=== PATIENT | female | born 1975 | race Caucasian/White ===

== ENCOUNTER 2019-02-14 13:31 | Emergency (ER) | payer MEDICAID ==
--- NOTE | 2019-02-14 13:49 | ER Document Report ---
ED Medical Screen (RME) - General Chief Complaint: Vomiting Stated Complaint: VOMITING Time Seen by Provider: 02/14/19 13:41 Mode of Arrival: Ambulatory Information source: Patient Notes: This 43-year-old female with history of IBS asthma presents to the emergency department with epigastric abdominal pain and vomiting. Reports she has been vomiting with abdominal pain since Monday. Reports her stomach feels like it is on fire. She has not taken anything for the pain. She reports she has been vomiting up coffee-ground material. Denies history of ulcers. She did go to urgent care prior to arrival they treated her with an injection for her nausea. She also reports they did a urinalysis while they were at the urgent care and she is been told she is . Patient reports diarrhea since last week but has been having diarrhea on and off since October. Was diagnosed with IBS in October or November via colonoscopy. Denies fever reports she feels very cold. I have greeted and performed a rapid initial assessment of this patient. A comprehensive ED assessment and evaluation of the patient, analysis of test results and completion of the medical decision making process will be conducted by additional ED providers. Dictation of this chart was performed using voice recognition software; therefore, there may be some unintended grammatical errors. - Related Data Allergies/Adverse Reactions: No Known Allergies Allergy (Verified 02/14/19 13:47) Physical Exam - Vital signs Vitals: Temp Pulse Resp BP Pulse Ox 98.2 F 65 18 113/87 H 100 02/14/19 13:34 02/14/19 13:34 02/14/19 13:34 02/14/19 13:34 02/14/19 13:34 Course - Vital Signs Vital signs: Temp Pulse Resp BP Pulse Ox 98.2 F 65 18 113/87 H 100 02/14/19 13:34 02/14/19 13:34 02/14/19 13:34 02/14/19 13:34 02/14/19 13:34
[2019-02-14 14:58] LABS: ABSOLUTE EOSINOPHILS # (AUTO) 0.2 10^3/uL (0.0-0.6); ABSOLUTE LYMPHOCYTES (AUTO) 1.7 10^3/uL (0.5-4.7); ABSOLUTE MONOCYTES (AUTO) 0.7 10^3/uL (0.1-1.4); ABSOLUTE NEUT (AUTO) 3.1 10^3/uL (1.7-8.2); BASOPHILS % (AUTO) 0.5 % (0-2); EOSINOPHILS % (AUTO) 3.9 % (0-6); HEMATOCRIT 44.2 % (36.0-47.0); HEMOGLOBIN 15.1 g/dL (12.0-15.5); LYMPHOCYTES % (AUTO) 29.8 % (13-45); MEAN CORPUSCULAR HEMOGLOBIN 32.3 pg (27.0-33.4); MEAN CORPUSCULAR HGB CONC 34.2 g/dL (32.0-36.0); MEAN CORPUSCULAR VOLUME 94 fl (80-97); PLATELET COUNT 135 10^3/uL (150-450); RED BLOOD COUNT 4.69 10^6/uL (3.72-5.28); RED CELL DISTRIBUTION WIDTH 12.6 % (11.5-14.0); SEGMENTED NEUTROPHILS % (AUTO) 53.8 % (42-78); TOTAL CELLS COUNTED % (AUTO) 100 %; WHITE BLOOD COUNT 5.7 10^3/uL (4.0-10.5)
[2019-02-14 15:16] LABS: APPEARANCE,URINE CLOUDY; BILIRUBIN,URINE SMALL (NEGATIVE); GLUCOSE, URINE NEGATIVE (NEGATIVE); KETONES,URINE TRACE mg/dL (NEGATIVE); LEUKOCYTE ESTERASE,URINE NEGATIVE (NEGATIVE); NITRITE,URINE NEGATIVE (NEGATIVE); PROTEIN,URINE 30 mg/dL (NEGATIVE); URINE SPECIFIC GRAVITY 1.028
[2019-02-14 15:17] LABS: ALBUMIN 4.8 g/dL (3.5-5.0); ALKALINE PHOSPHATASE 107 U/L (38-126); ANION GAP 12 (5-19); ASPARTATE AMINO TRANSFERASE 21 U/L (14-36); BILIRUBIN,DIRECT 0.1 mg/dL (0.0-0.4); BILIRUBIN,TOTAL 0.6 mg/dL (0.2-1.3); BLOOD UREA NITROGEN 14 mg/dL (7-20); CALCIUM 9.8 mg/dL (8.4-10.2); CARBON DIOXIDE 27 mmol/L (22-30); CHLORIDE 101 mmol/L (98-107); COLOR,URINE DARK YELLOW; GLUCOSE 97 mg/dL (75-110); POTASSIUM 4.3 mmol/L (3.6-5.0); TOTAL PROTEIN 8.2 g/dL (6.3-8.2)
--- NOTE | 2019-02-14 15:48 | ER Document Report ---
ED GI/ - General Chief Complaint: Abdominal Pain Stated Complaint: VOMITING Time Seen by Provider: 02/14/19 13:41 Primary Care Provider: DOMINIQUE WHITMORE PA-C [Primary Care Provider] - Follow up as needed Mode of Arrival: Ambulatory Information source: Patient Notes: Patient is a 43-year-old female presenting to the emergency department with complaints of upper abdominal pain with vomiting and diarrhea. Patient reports the diarrhea has been going on for several months and she has a history of IBS. Patient reports the epigastric pain with vomiting began on Monday which was 6 days ago. She reports that she did have some coffee-ground looking emesis yesterday. She reports this morning she went to an urgent care to be seen with a found out that she was also . Patient reports she is currently on control pills. If she is indeed she is now G3, P2. She denies any history of GI bleeds, denies any fevers. She does report a history of back surgery, cholecystectomy and appendectomy. TRAVEL OUTSIDE OF THE [place] IN LAST 30 DAYS: No - Related Data Allergies/Adverse Reactions: No Known Allergies Allergy (Verified 02/14/19 13:47) Past Medical History - General Information source: Patient - Social History Smoking Status: Current Every Day Smoker Chew tobacco use (# tins/day): No Frequency of alcohol use: None Drug Abuse: Marijuana Family History: Reviewed & Not Pertinent Patient has suicidal ideation: No Patient has homicidal ideation: No Pulmonary Medical History: Reports: Hx Asthma GI Medical History: Reports: Hx Irritable Bowel Past Surgical History: Reports: Hx Appendectomy, Hx Cholecystectomy, Hx Orthopedic Surgery - lower back - Immunizations Immunizations up to date: Yes Review of Systems - Review of Systems Constitutional: No symptoms reported. denies: Fever EENT: No symptoms reported Cardiovascular: No symptoms reported Respiratory: No symptoms reported Gastrointestinal: Abdominal pain - Epigastric, Nausea, Vomiting, Constipation Genitourinary: No symptoms reported Female Genitourinary: No symptoms reported Musculoskeletal: No symptoms reported Skin: No symptoms reported Hematologic/Lymphatic: No symptoms reported Neurological/Psychological: No symptoms reported Physical Exam - Vital signs Vitals: Temp Pulse Resp BP Pulse Ox 98.2 F 65 18 113/87 H 100 02/14/19 13:34 02/14/19 13:34 02/14/19 13:34 02/14/19 13:34 02/14/19 13:34 - Notes Notes: PHYSICAL EXAMINATION: GENERAL: Well-appearing, well-nourished and in no acute distress. HEAD: Atraumatic, normocephalic. EYES: Pupils equal round and reactive to light, extraocular movements intact, conjunctiva are normal. ENT: Nares patent, oropharynx clear without exudates. Moist mucous membranes. NECK: Normal range of motion, supple without lymphadenopathy LUNGS: Breath sounds clear to auscultation bilaterally and equal. No wheezes rales or rhonchi. HEART: Regular rate and rhythm without murmurs ABDOMEN: Soft, nontender, nondistended abdomen. Tenderness over the epigastric area. No guarding, no rebound. No masses appreciated. Female : No CVA tenderness. Musculoskeletal: Normal range of motion, no pitting or edema. No cyanosis. NEUROLOGICAL: Cranial nerves grossly intact. Normal speech, normal gait. Normal sensory, motor exams PSYCH: Normal mood, normal affect. SKIN: Warm, Dry, normal turgor, no rashes or lesions noted. Course - Re-evaluation Re-evalutation: Patient appears well, nontoxic. Physical exam reveals tenderness over the epigastric area. Labs and imaging as recorded below. Laboratory 02/14/19 02/14/19 02/14/19 14:30 14:30 14:30 WBC 5.7 RBC 4.69 Hgb 15.1 Hct 44.2 MCV 94 MCH 32.3 MCHC 34.2 RDW 12.6 Plt Count 135 L Lymph % (Auto) 29.8 Gilchrist % (Auto) 12.0 Eos % (Auto) 3.9 Baso % (Auto) 0.5 Absolute Neuts (auto) 3.1 Absolute Lymphs (auto) 1.7 Absolute Monos (auto) 0.7 Absolute Eos (auto) 0.2 Absolute Basos (auto) 0.0 Seg Neutrophils % 53.8 Sodium 140.1 Potassium 4.3 Chloride 101 Carbon Dioxide 27 Anion Gap 12 BUN 14 Creatinine 0.83 Est GFR ( Amer) > 60 Est GFR (MDRD) Non-Af > 60 Glucose 97 Calcium 9.8 Total Bilirubin 0.6 Direct Bilirubin 0.1 Neonat Total Bilirubin Not Reportable Neonat Direct Bilirubin Not Reportable Neonat Indirect Bili Not Reportable AST 21 ALT 13 Alkaline Phosphatase 107 Total Protein 8.2 Albumin 4.8 Beta HCG, Quant 8.05 H Total Beta HCG POSITIVE Urine Color DARK YELLOW Urine Appearance CLOUDY Urine pH 5.0 Ur Specific [place] 1.028 Urine Protein 30 H Urine Glucose (UA) NEGATIVE Urine Ketones TRACE H Urine Blood NEGATIVE Urine Nitrite NEGATIVE Urine Bilirubin SMALL H Urine Urobilinogen 2.0 H Ur Leukocyte Esterase NEGATIVE Urine WBC (Auto) 9 Urine RBC (Auto) 9 Urine Bacteria (Auto) TRACE Squamous Epi Cells Auto 19 Urine Mucus (Auto) MANY Urine Ascorbic Acid NEGATIVE Blood Type Antibody Screen 02/14/19 02/14/19 15:35 16:30 WBC RBC Hgb Hct MCV MCH MCHC RDW Plt Count Lymph % (Auto) Gilchrist % (Auto) Eos % (Auto) Baso % (Auto) Absolute Neuts (auto) Absolute Lymphs (auto) Absolute Monos (auto) Absolute Eos (auto) Absolute Basos (auto) Seg Neutrophils % Sodium Potassium Chloride Carbon Dioxide Anion Gap BUN Creatinine Est GFR ( Amer) Est GFR (MDRD) Non-Af Glucose Calcium Total Bilirubin Direct Bilirubin Neonat Total Bilirubin Neonat Direct Bilirubin Neonat Indirect Bili AST ALT Alkaline Phosphatase Total Protein Albumin Beta HCG, Quant Total Beta HCG Urine Color Urine Appearance Urine pH Ur Specific [place] Urine Protein Urine Glucose (UA) Urine Ketones Urine Blood Urine Nitrite Urine Bilirubin Urine Urobilinogen Ur Leukocyte Esterase Urine WBC (Auto) Urine RBC (Auto) Urine Bacteria (Auto) Squamous Epi Cells Auto Urine Mucus (Auto) Urine Ascorbic Acid Blood Type Cancelled O POSITIVE Antibody Screen Cancelled NEGATIVE Obstetrics Ultrasound 02/14/19 17:51 IMPRESSION: NO VISUALIZED INTRA- OR EXTRAUTERINE . bHCG LEVEL TOO LOW TO EXPECT VISUALIZATION OF . ECTOPIC CANNOT BE EXCLUDED. FOLLOW-UP ULTRASOUND AND SERIAL BHCG LEVELS STRONGLY RECOMMENDED TO ACCURATELY ASSESS STATUS. All test results were discussed with patient. Patient continues to appear well. Likely gastritis. Patient will be discharged home in stable condition. Patient will follow-up with RE[facility]ERATOR [facility] for further evaluation of the newly found positive . Patient verbalizes understanding and agreement with this plan. The patient's emergency department workup and current diagnosis were explained to the patient and or family. Follow-up instructions were provided. Medications if prescribed were discussed. Instructions for when to return to the emergency department including specific worrisome symptoms were discussed with the patient and/or family. - Vital Signs Vital signs: Temp Pulse Resp BP Pulse Ox 98.2 F 47 L 16 109/68 97 02/14/19 19:44 02/14/19 19:44 02/14/19 19:44 02/14/19 19:44 02/14/19 19:44 - Laboratory Result Diagrams: 02/14/19 14:30 02/14/19 14:30 Laboratory results interpreted by me: 02/14/19 02/14/19 02/14/19 14:30 14:30 14:30 Plt Count 135 L Beta HCG, Quant 8.05 H Urine Protein 30 H Urine Ketones TRACE H Urine Bilirubin SMALL H Urine Urobilinogen 2.0 H Discharge - Discharge Clinical Impression: Gastritis Qualifiers: Gastritis type: unspecified gastritis Chronicity: acute Gastritis bleeding: presence of bleeding unspecified Qualified Code(s): K29.00 - Acute gastritis without bleeding Qualifiers: Weeks of gestation: unspecified Qualified Code(s): Z34.90 - Encounter for supe rvision of normal , unspecified, unspecified trimester Condition: Stable Disposition: HOME, SELF-CARE Additional Instructions: Your symptoms appear to be most consistent with stomach or upper intestinal irritation. Please begin taking famotidine 40 mg in the morning and 40 mg at night. Take the Carafate as prescribed. You may also take medicine such as Pepto-Bismol or Tums to assist with your pain. Please return to emergency department immediately if you have worsening of your pain, shortness of breath, vomiting, become unable to exert yourself due to pain or difficulty breathing, you pass out, or have any pain that radiates into your arms, jaw, or back. Please also return if you have any additional symptoms that are concerning to you. Please follow-up with either your DIGITAL ASSISTANT or your primary care provider for further management of the newly diagnosed . Prescriptions: Sucralfate [Carafate 1 gm Tablet] 1 gm PO ACHS #60 tablet Famotidine [Pepcid 20 mg Tablet] 40 mg PO BID #40 tablet Metoclopramide HCl [Reglan] 10 mg PO QID #20 tablet Referrals: DOMINIQUE WHITMORE PA-C [Primary Care Provider] - Follow up as needed
[2019-02-14] MEDS ORDERED: FAMOTIDINE INJ/PF 20 MG/2 ML SDV IV ONE (15:49)
[2019-02-14] MEDS ORDERED: METOCLOPRAMIDE HCL INJ/PF 10 MG/2 ML SDV IV ONE (15:49)
--- NOTE | 2019-02-14 18:31 | RADIOLOGY REPORT (SQ) ---
EXAM DESCRIPTION: U/S OB TRANSVAGINAL W/O DOP COMPLETED DATE/TIME: 02/14/2019 6:22 pm REASON FOR STUDY: + preg, low quant COMPARISON: None. TECHNIQUE: Transvaginal static and realtime grayscale images acquired of the pelvis. Additional ever cted spectral and color Doppler images recorded. All images stored on PACs. CLINICAL AGE: 3 week 6 day. BHC.05 LIMITATIONS: None. FINDINGS: UTERUS: No visualized intrauterine . RIGHT ADNEXA: Obscured by overlying bowel No adnexal free fluid. No adnexal masses. LEFT ADNEXA: Obscured by overlying bowel. No adnexal free fluid. No adnexal masses. FREE FLUID: None. OTHER: No other significant finding. IMPRESSION: NO VISUALIZED INTRA- OR EXTRAUTERINE . bHCG LEVEL TOO LOW TO EXPECT VISUALIZATION OF . ECTOPIC CANNOT BE EXCLUDED. FOLLOW-UP ULTRASOUND AND SERIAL BHCG LEVELS STRONGLY RECOMMENDED TO ACCURATELY ASSESS STATU S. TECHNICAL DOCUMENTATION: JOB ID: [id number] [employer]- All Rights Reserved Reading location - IP/workstation name: [email or web address]
[2019-02-14 19:48] VITALS: BP 109/68
== END 2019-02-14 19:50 | disposition home or self-care (01) ==
LOC: ER 13:31
DX: O99.619 Diseases of the digestive system complicating pregnancy, unspecified trimester (principal); K29.00 Acute gastritis without bleeding; K59.00 Constipation, unspecified; O26.899 Other specified pregnancy related conditions, unspecified trimester; R19.7 Diarrhea, unspecified; R10.13 Epigastric pain; R10.816 Epigastric abdominal tenderness; O21.9 Vomiting of pregnancy, unspecified; O99.320 Drug use complicating pregnancy, unspecified trimester; F12.10 Cannabis abuse, uncomplicated; O99.330 Smoking (tobacco) complicating pregnancy, unspecified trimester; F17.200 Nicotine dependence, unspecified, uncomplicated; O99.519 Diseases of the respiratory system complicating pregnancy, unspecified trimester; J45.909 Unspecified asthma, uncomplicated; Z3A.00 Weeks of gestation of pregnancy not specified; Z79.3 Long term (current) use of hormonal contraceptives; Z90.49 Acquired absence of other specified parts of digestive tract
CPT/HCPCS: 99284; 96374; 96375; 86900; 86901; 36415; 86850; 84702; 85025; 80053; 81001; 76817; J2765; S0028

== ENCOUNTER 2019-09-05 19:14 | Emergency (ER) | payer SELFPAY ==
--- NOTE | 2019-09-05 19:24 | ER Document Report ---
ED Medical Screen (RME) - General Stated Complaint: HEADACHE,DIZZINESS,NAUSEA Primary Care Provider: DOMINIQUE WHITMORE PA-C [Primary Care Provider] - Follow up as needed Notes: Patient is a 43-year-old white female with a past medical history of asthma who presents to the emergency department the chief complaint of headache that began 3 days ago. She states it is primarily a frontal headache. States the headache is associated with nausea and vomiting. She reports the headache, nausea and vomiting worsen when she sits upright, slightly better when lying down however notes tenderness to the occipital scalp area if lying on it. Denies any visual disturbances. She states her daughter recently had a very similar headache prior to hers and then she got 1. She denies history of any headache disorder. Denies any recent procedures. I have treated and performed a rapid initial assessment of this patient. A comprehensive ED assessment and evaluation of the patient, analysis of test results and completion of medical decision making process will be conducted by additional ED providers. PHYSICAL EXAMINATION: GENERAL: Well-appearing, well-nourished and in no acute distress. A&Ox4. Answers questions appropriately. TRAVEL OUTSIDE OF THE [place] IN LAST 30 DAYS: No - Related Data Allergies/Adverse Reactions: No Known Allergies Allergy (Verified 02/14/19 13:47) Past Medical History Pulmonary Medical History: Reports: Hx Asthma GI Medical History: Reports: Hx Irritable Bowel Past Surgical History: Reports: Hx Appendectomy, Hx Cholecystectomy, Hx Orthopedic Surgery - lower back - Immunizations Immunizations up to date: Yes Physical Exam - Vital signs Vitals: Temp Pulse Resp BP Pulse Ox 98.3 F 95 16 94/51 L 93 09/05/19 19:19 09/05/19 19:19 09/05/19 19:19 09/05/19 19:19 09/05/19 19:19 Course - Vital Signs Vital signs: Temp Pulse Resp BP Pulse Ox 98.3 F 95 16 94/51 L 93 09/05/19 19:19 09/05/19 19:19 09/05/19 19:19 09/05/19 19:19 09/05/19 19:19 Doctor's Discharge - Discharge Referrals: DOMINIQUE WHITMORE PA-C [Primary Care Provider] - Follow up as needed
[2019-09-05 19:50] LABS: ABSOLUTE EOSINOPHILS # (AUTO) 0.1 10^3/uL (0.0-0.6); ABSOLUTE LYMPHOCYTES (AUTO) 1.3 10^3/uL (0.5-4.7); ABSOLUTE MONOCYTES (AUTO) 0.3 10^3/uL (0.1-1.4); ABSOLUTE NEUT (AUTO) 1.3 10^3/uL (1.7-8.2); BASOPHILS % (AUTO) 1.4 % (0-2); EOSINOPHILS % (AUTO) 3.3 % (0-6); HEMATOCRIT 40.3 % (36.0-47.0); HEMOGLOBIN 14.1 g/dL (12.0-15.5); LYMPHOCYTES % (AUTO) 41.2 % (13-45); MEAN CORPUSCULAR HEMOGLOBIN 32.1 pg (27.0-33.4); MEAN CORPUSCULAR VOLUME 92 fl (80-97); PLATELET COUNT 124 10^3/uL (150-450); RED BLOOD COUNT 4.39 10^6/uL (3.72-5.28); RED CELL DISTRIBUTION WIDTH 13.6 % (11.5-14.0); SEGMENTED NEUTROPHILS % (AUTO) 44.1 % (42-78); TOTAL CELLS COUNTED % (AUTO) 100 %
[2019-09-05 20:06] LABS: ALKALINE PHOSPHATASE 87 U/L (38-126); ANION GAP 5 (5-19); ASPARTATE AMINO TRANSFERASE 24 U/L (14-36); BILIRUBIN,TOTAL 0.6 mg/dL (0.2-1.3); BLOOD UREA NITROGEN 12 mg/dL (7-20); CALCIUM 8.8 mg/dL (8.4-10.2); CARBON DIOXIDE 26 mmol/L (22-30); CHLORIDE 103 mmol/L (98-107); GLUCOSE 97 mg/dL (75-110); POTASSIUM 4.1 mmol/L (3.6-5.0); TOTAL PROTEIN 7.5 g/dL (6.3-8.2)
--- NOTE | 2019-09-05 20:55 | ER Document Report ---
ED General - General Chief Complaint: Headache Stated Complaint: HEADACHE,DIZZINESS,NAUSEA Time Seen by Provider: 09/05/19 20:53 Primary Care Provider: DOMINIQUE WHITMORE PA-C [ALLIED HEALTH PROFESSIONAL] - Follow up as needed Mode of Arrival: Ambulatory Information source: Patient Notes: Tara note Patient is a 43-year-old white female with a past medical history of asthma who presents to the emergency department the chief complaint of headache that began 3 days ago. She states it is primarily a frontal headache. States the headache is associated with nausea and vomiting. She reports the headache, nausea and vomiting worsen when she sits upright, slightly better when lying down however notes tenderness to the occipital scalp area if lying on it. Denies any visual disturbances. She states her daughter recently had a very similar headache prior to hers and then she got 1. She denies history of any headache disorder. Denies any recent procedures. My note 43-year-old female arrives with diffuse cephalgia and dyspnea and nausea when she attempts to sit up. She denies any nuchal rigidity or neck pain sore throat fever chills cough cold but does admit to some problems with pollen. She works at [employer] and denies any flu symptoms or coronavirus symptoms. She has had her headache since Monday TRAVEL OUTSIDE OF THE [place] IN LAST 30 DAYS: No - HPI Onset: Just prior to arrival Onset/Duration: Sudden, Persistent Quality of pain: No pain Severity: Mild Pain Level: 1 Associated symptoms: None Exacerbated by: Denies Relieved by: Denies Similar symptoms previously: Yes Recently seen / treated by doctor: No - Related Data Allergies/Adverse Reactions: No Known Allergies Allergy (Verified 02/14/19 13:47) Home Medications: tylenol prn Past Medical History - General Information source: Patient - Social History Smoking Status: Current Every Day Smoker Cigarette use (# per day): Yes Chew tobacco use (# tins/day): No Smoking Education Provided: Yes Frequency of alcohol use: None Drug Abuse: None Lives with: Family Family History: Reviewed & Not Pertinent Patient has suicidal ideation: No Patient has homicidal ideation: No Pulmonary Medical History: Reports: Hx Asthma GI Medical History: Reports: Hx Irritable Bowel Past Surgical History: Reports: Hx Appendectomy, Hx Cholecystectomy, Hx Orthopedic Surgery - lower back - Immunizations Immunizations up to date: Yes Review of Systems - Review of Systems Constitutional: No symptoms reported EENT: No symptoms reported, Nose congestion Cardiovascular: No symptoms reported Respiratory: No symptoms reported Gastrointestinal: No symptoms reported Genitourinary: No symptoms reported Female Genitourinary: No symptoms reported Musculoskeletal: No symptoms reported Skin: No symptoms reported Hematologic/Lymphatic: No symptoms reported Neurological/Psychological: No symptoms reported, Headaches Physical Exam - Vital signs Vitals: Temp Pulse Resp BP Pulse Ox 98.3 F 95 16 94/51 L 93 09/05/19 19:19 09/05/19 19:19 09/05/19 19:19 09/05/19 19:19 09/05/19 19:19 Interpretation: Hypotensive - General General appearance: Alert - HEENT Head: Normocephalic Eyes: Normal Conjunctiva: Normal Cornea: Normal Extraocular movements intact: Yes Eyelashes: Normal Pupils: PERRL Nasal: Clear rhinorrhea Mouth/Lips: Normal Mucous membranes: Normal Pharynx: Normal Neck: Normal - Respiratory Respiratory status: No respiratory distress Chest status: Nontender Breath sounds: Normal Chest palpation: Normal - Cardiovascular Rhythm: Regular Heart sounds: Normal auscultation Murmur: No - Abdominal Inspection: Normal Distension: No distension Bowel sounds: Normal Tenderness: Nontender Organomegaly: No organomegaly - Back Back: Normal - Extremities General upper extremity: Normal inspection General lower extremity: Normal inspection - Neurological Neuro grossly intact: Yes Cognition: Normal Orientation: AAOx4 Frannie Coma Scale Eye Opening: Spontaneous Frannie Coma Scale Verbal: Oriented [place] Coma Scale Motor: Obeys Commands Frannie Coma Scale Total: 15 Speech: Normal Cranial nerves: Normal Cerebellar coordination: Normal Motor strength normal: LUE, RUE, LLE, RLE - Psychological Associated symptoms: Normal affect - Skin Skin Temperature: Warm Skin Moisture: Dry Course - Vital Signs Vital signs: Temp Pulse Resp BP Pulse Ox 98.3 F 95 16 94/51 L 93 09/05/19 19:19 09/05/19 19:19 09/05/19 19:19 09/05/19 19:19 09/05/19 19:19 - Laboratory Result Diagrams: 09/05/19 19:36 09/05/19 19:36 Laboratory results interpreted by me: 09/05/19 09/05/19 19:36 19:36 WBC 3.0 L Plt Count 124 L Absolute Neuts (auto) 1.3 L Sodium 133.7 L - Diagnostic Test Radiology reviewed: Reports reviewed Critical Care Note - Critical Care Note Total time excluding time spent on procedures (mins): 90 Comments: I discussed the CT reports and the labs with the patient and also the lowered white count Discharge - Discharge Clinical Impression: Headache Qualifiers: Headache type: unspecified Headache chronicity pattern: acute headache Intr actability: not intractable Qualified Code(s): R51 - Headache Leucopenia Qualifiers: Leukopenia type: unspecified Qualified Code(s): D72.819 - Decreased white blood cell count, unspecified Hypotension Qualifiers: Hypotension type: other hypotension type Qualified Code(s): I95.89 - Other hypotension Condition: Good Disposition: HOME, SELF-CARE Additional Instructions: Follow-up with personal doctor return to ER if symptoms persist take medicines as directed encourage fluids Prescriptions: Mupirocin [Bactroban 2% Ointment 22 gm] 1 applic NASL HSP PRN #1 tube PRN Reason: Levofloxacin [Levaquin 500 mg Tablet] 500 mg PO DAILY #5 tablet Acyclovir [Zovirax 200 mg Capsule] 200 mg PO TID 7 Days #21 capsule Forms: Return to Work Referrals: DOMINIQUE WHITMORE PA-C [ALLIED HEALTH PROFESSIONAL] - Follow up as needed
[2019-09-05] MEDS ORDERED: FENTANYL CITRATE INJ/PF 100 MCG/2 ML AMPUL IM ONE (21:50)
[2019-09-05] MEDS ORDERED: PROCHLORPERAZINE EDISYLATE INJ 10 MG/2 ML VIAL IM ONE (21:50)
--- NOTE | 2019-09-05 22:01 | RADIOLOGY REPORT (SQ) ---
EXAM DESCRIPTION: Noncontrast CT head CLINICAL HISTORY: I Female headache TECHNIQUE: Noncontrast CT head. All CT scans at this facility use dose modulation, iterative reconstruction, and/or weight based dosing when appropriate to reduce radiation dose to as low as reasonably achievable. COMPARISON: None. FINDINGS: Montano matter, white matter, ventricles, and cisterns are within normal limits. No acute hemorrhage or mass effect. Visualized portions of paranasal sinuses and mastoids are clear. Visualized portions of the calvarium are within normal limits. IMPRESSION: 1. No acute intracranial findings. 2. If there is continued clinical concern for acute intracranial process, MRI should be considered as a more sensitive evaluation.
[2019-09-06 00:12] LABS: A TYPE INFLUENZA AG NEGATIVE (NEGATIVE); B INFLUENZA AG NEGATIVE (NEGATIVE)
[2019-09-06 03:03] VITALS: BP 113/63
== END 2019-09-06 01:37 | disposition home or self-care (01) ==
LOC: ER 19:14
DX: R51 Headache (principal); D72.819 Decreased white blood cell count, unspecified; R11.2 Nausea with vomiting, unspecified; I95.9 Hypotension, unspecified; J34.89 Other specified disorders of nose and nasal sinuses; J45.909 Unspecified asthma, uncomplicated; F17.210 Nicotine dependence, cigarettes, uncomplicated; Z20.828 Contact with and (suspected) exposure to other viral communicable diseases
CPT/HCPCS: 99284; 96372; 36415; 87070; 87880; 85025; 87635; 80053; 87804; 70450; J3010; J0780

== ENCOUNTER 2019-12-28 21:48 | Emergency (ER) | payer SELFPAY ==
[2019-12-28 23:30] VITALS: BP 129/59
== END 2019-12-29 02:00 | disposition left against medical advice (07) ==
LOC: ER 21:48
DX: Z53.21 Procedure and treatment not carried out due to patient leaving prior to being seen by health care provider (principal)

== ENCOUNTER 2020-05-04 17:28 | Emergency (ER) | payer SELFPAY ==
[2020-05-04] MEDS ORDERED: NORMAL SALINE 1000 ML 1,000 ML IV ONE (18:25)
[2020-05-04] MEDS ORDERED: ONDANSETRON HCL INJ/PF 4 MG/2 ML SDV IV ONE (18:25)
--- NOTE | 2020-05-04 18:26 | ER Document Report ---
ED Medical Screen (RME) - General Chief Complaint: Nausea/Vomiting Stated Complaint: NAUSEA VOMITINT Time Seen by Provider: 05/04/20 18:19 Primary Care Provider: AKIN QUEZADA PA-C [Primary Care Provider] - Follow up as needed Notes: Patient is a 44-year-old female presents emergency department for nausea, vomiting, and a burning sensation in her lower abdomen. Patient was seen at [facility] and had a CT scan done, where nothing was shown. Prior to then, she went to [facility]. She was not tested for Covid at [facility]. Patient was diagnosed with gastroenteritis, but continues to have symptoms. Exam: Patient appears unwell. Patient will be tested for COVID-19. I have greeted and performed a rapid initial assessment of this patient. A comprehensive ED assessment and evaluation of the patient, analysis of test results and completion of medical decision making process will be conducted by an additional ED providers. TRAVEL OUTSIDE OF THE [place] IN LAST 30 DAYS: No - Related Data Allergies/Adverse Reactions: No Known Allergies Allergy (Verified 02/14/19 13:47) Past Medical History - Social History Chew tobacco use (# tins/day): No Frequency of alcohol use: Occasional Drug Abuse: None Pulmonary Medical History: Reports: Hx Asthma GI Medical History: Reports: Hx Irritable Bowel Past Surgical History: Reports: Hx Appendectomy, Hx Cholecystectomy, Hx Orthopedic Surgery - lower back - Immunizations Immunizations up to date: Yes Physical Exam - Vital signs Vitals: Temp Pulse Resp BP Pulse Ox 98.4 F 53 L 22 H 130/73 H 99 05/04/20 17:34 05/04/20 17:34 05/04/20 17:34 05/04/20 17:34 05/04/20 17:34 Course - Vital Signs Vital signs: Temp Pulse Resp BP Pulse Ox 98.4 F 53 L 22 H 130/73 H 99 05/04/20 17:34 05/04/20 17:34 05/04/20 17:34 05/04/20 17:34 05/04/20 17:34 Doctor's Discharge - Discharge Referrals: AKIN QUEZADA PA-C [Primary Care Provider] - Follow up as needed
[2020-05-04 20:33] LABS: ABSOLUTE EOSINOPHILS # (AUTO) 0.2 10^3/uL (0.0-0.6); ABSOLUTE LYMPHOCYTES (AUTO) 1.4 10^3/uL (0.5-4.7); ABSOLUTE MONOCYTES (AUTO) 0.7 10^3/uL (0.1-1.4); BASOPHILS % (AUTO) 0.3 % (0-2); EOSINOPHILS % (AUTO) 2.6 % (0-6); HEMATOCRIT 45.2 % (36.0-47.0); HEMOGLOBIN 15.7 g/dL (12.0-15.5); LYMPHOCYTES % (AUTO) 17.1 % (13-45); MEAN CORPUSCULAR HEMOGLOBIN 33.3 pg (27.0-33.4); MEAN CORPUSCULAR HGB CONC 34.7 g/dL (32.0-36.0); MEAN CORPUSCULAR VOLUME 96 fl (80-97); MONOCYTES % (AUTO) 8.8 % (3-13); PLATELET COUNT 177 10^3/uL (150-450); RED CELL DISTRIBUTION WIDTH 13.1 % (11.5-14.0); SEGMENTED NEUTROPHILS % (AUTO) 71.2 % (42-78); TOTAL CELLS COUNTED % (AUTO) 100 %; WHITE BLOOD COUNT 8.4 10^3/uL (4.0-10.5)
--- NOTE | 2020-05-04 20:35 | ER Document Report ---
ED General - General Chief Complaint: Nausea/Vomiting Stated Complaint: NAUSEA VOMITING Time Seen by Provider: 05/04/20 18:19 Primary Care Provider: AKIN QUEZDAA PA-C [Primary Care Provider] - Follow up as needed Mode of Arrival: Ambulatory Information source: Patient Notes: 44-year-old female patient presented to the emergency department chief complaint of nausea, vomiting and burning in her upper and lower abdomen. Patient reports history of IBS, states this feels different. She states that she recently drove here from [place]. She states that on Monday she got home and was seen at [facility] and had a normal CT scan. She reports she had similar symptoms. She denies any recent fever or chills, denies any concern for Covid. TRAVEL OUTSIDE OF THE [place] IN LAST 30 DAYS: No - Related Data Allergies/Adverse Reactions: No Known Allergies Allergy (Verified 02/14/19 13:47) Past Medical History - General Information source: Patient - Social History Smoking Status: Current Every Day Smoker Chew tobacco use (# tins/day): No Frequency of alcohol use: Occasional Drug Abuse: None Family History: Reviewed & Not Pertinent Pulmonary Medical History: Reports: Hx Asthma GI Medical History: Reports: Hx Irritable Bowel Past Surgical History: Reports: Hx Appendectomy, Hx Cholecystectomy, Hx Orthopedic Surgery - lower back - Immunizations Immunizations up to date: Yes Review of Systems - Review of Systems Gastrointestinal: Abdominal pain, Diarrhea, Nausea -: Yes All other systems reviewed and negative Physical Exam - Vital signs Vitals: Temp Pulse Resp BP Pulse Ox 98.4 F 53 L 22 H 130/73 H 99 05/04/20 17:34 05/04/20 17:34 05/04/20 17:34 05/04/20 17:34 05/04/20 17:34 - Notes Notes: PHYSICAL EXAMINATION: GENERAL: Well-appearing, well-nourished and in no acute distress. HEAD: Atraumatic, normocephalic. EYES: Pupils equal round and reactive to light, extraocular movements intact, conjunctiva are normal. ENT: Nares patent, oropharynx clear without exudates. Moist mucous membranes. NECK: Normal range of motion, supple without lymphadenopathy LUNGS: Breath sounds clear to auscultation bilaterally and equal. No wheezes rales or rhonchi. HEART: Regular rate and rhythm without murmurs ABDOMEN: Soft, mildly tender, nondistended abdomen. No guarding, no rebound. No masses appreciated. Female : deferred Musculoskeletal: Normal range of motion, no pitting or edema. No cyanosis. NEUROLOGICAL: Cranial nerves grossly intact. Normal speech, normal gait. Normal sensory, motor exams PSYCH: Normal mood, normal affect. SKIN: Warm, Dry, normal turgor, no rashes or lesions noted. Course - Re-evaluation Re-evalutation: 05/04/20 23:10 Patient appears well, nontoxic, abdominal pain resolved after administration of IV fluids and medications in the emergency department. She T shows no acute findings, suggests gastritis. Patient will be started on appropriate medications and discharged home. Patient comfortable with this plan. There is a Covid test pending. ED return precautions were discussed, patient verbalized understanding and agreement with same. - Vital Signs Vital signs: Temp Pulse Resp BP Pulse Ox 97.5 F 55 L 16 105/56 L 100 05/04/20 23:38 05/04/20 23:38 05/04/20 23:38 05/04/20 23:38 05/04/20 23:38 - Laboratory Results Result Diagrams: 05/04/20 20:16 05/04/20 20:16 Laboratory Results Interpreted: 05/04/20 05/04/20 05/04/20 20:16 20:16 22:59 Hgb 15.7 H Sodium 136.4 L Total Protein 8.3 H Urine Ketones 20 H Ur Leukocyte Esterase TRACE H Critical Laboratory Results Reviewed: No Critical Results - Radiology Results Critical Radiology Results Reviewed: No Critical Results Discharge - Discharge Clinical Impression: Gastritis Qualifiers: Gastritis type: unspecified gastritis Chronicity: acute Gastritis bleeding: without bleeding Qualified Code(s): K29.00 - Acute gastritis without bleeding Nausea and vomiting Qualifiers: Vomiting type: unspecified Vomiting Intractability: non-intractable Qualified Code(s): R11.2 - Nausea with vomiting, unspecified Condition: Stable Disposition: HOME, SELF-CARE Additional Instructions: Your symptoms appear to be most consistent with stomach or upper intestinal irritation. Take medications as prescribed. You may also take medicine such as Pepto-Bismol or Tums to assist with your pain. Please return to emergency department immediately if you have worsening of your pain, shortness of breath, vomiting, become unable to exert yourself due to pain or difficulty breathing, you pass out, or have any pain that radiates into your arms, jaw, or back. Please also return if you have any additional symptoms that are concerning to you. Your Covid testing is pending. Please self quarantine until you have received your results and guidance from the health department if you are positive. Return if worsening as outlined above. Prescriptions: Dicyclomine HCl [Bentyl 20 mg Tablet] 20 mg PO QID #40 tablet Sucralfate [Carafate 1 gm Tablet] 1 gm PO ACHS #40 tablet Famotidine [Pepcid 20 mg Tablet] 20 mg PO BID #20 tablet Forms: Return to Work Referrals: AKIN QUEZADA PA-C [Primary Care Provider] - Follow up as needed
[2020-05-04 20:58] LABS: ALBUMIN 4.5 g/dL (3.5-5.0); ALKALINE PHOSPHATASE 83 U/L (38-126); ANION GAP 9 (5-19); ASPARTATE AMINO TRANSFERASE 23 U/L (14-36); BILIRUBIN,DIRECT 0.2 mg/dL (0.0-0.4); BILIRUBIN,TOTAL 0.6 mg/dL (0.2-1.3); BLOOD UREA NITROGEN 10 mg/dL (7-20); CALCIUM 9.9 mg/dL (8.4-10.2); CARBON DIOXIDE 29 mmol/L (22-30); CHLORIDE 98 mmol/L (98-107); GLUCOSE 92 mg/dL (75-110); POTASSIUM 3.7 mmol/L (3.6-5.0); TOTAL PROTEIN 8.3 g/dL (6.3-8.2)
[2020-05-04] MEDS ORDERED: FAMOTIDINE INJ/PF 20 MG/2 ML SDV IV ONE (21:01)
[2020-05-04] MEDS ORDERED: MORPHINE SULFATE 10 MG/ML INJ IV ONE (21:02)
--- NOTE | 2020-05-04 22:34 | RADIOLOGY REPORT (SQ) ---
EXAM DESCRIPTION: CT ABD/PELVIS WITH IV ONLY CLINICAL HISTORY: 44 years Female, severe abdominal pain COMPARISON: None. TECHNIQUE: Axial images of the abdomen and pelvis were performed utilizing intravenous contrast, with sagittal and coronal reformatted images. This exam was performed according to our departmental dose-optimization program which includes use of Automated Exposure Control, adjustment of the mA and/or kV according to patient size and/or use of iterative reconstruction technique. FINDINGS: There is questionable gastric antral wall thickening. The appendix appears normal. No evidence of bowel obstruction. There is no significant radiographic abnormality of the liver, spleen, pancreas, adrenal glands or kidneys. No mass or adenopathy. No free air or free fluid. IMPRESSION: Questionable gastric antral wall thickening. Gastritis cannot be excluded. Please correlate clinically.
[2020-05-04 23:13] LABS: APPEARANCE,URINE SLIGHTLY-CLOUDY; BILIRUBIN,URINE NEGATIVE (NEGATIVE); COLOR,URINE YELLOW; GLUCOSE, URINE NEGATIVE (NEGATIVE); KETONES,URINE 20 mg/dL (NEGATIVE); LEUKOCYTE ESTERASE,URINE TRACE (NEGATIVE); NITRITE,URINE NEGATIVE (NEGATIVE); PROTEIN,URINE NEGATIVE (NEGATIVE); URINE SPECIFIC GRAVITY 1.053; UROBILINOGEN,URINE NEGATIVE mg/dL (<2.0)
[2020-05-04] MEDS ORDERED: DICYCLOMINE HCL INJ 20 MG/2 ML AMPULE IM ONE (23:30)
[2020-05-04 23:39] VITALS: BP 105/56
== END 2020-05-04 23:47 | disposition home or self-care (01) ==
LOC: ER 17:28
DX: K29.00 Acute gastritis without bleeding (principal); R11.2 Nausea with vomiting, unspecified; R10.10 Upper abdominal pain, unspecified; R10.30 Lower abdominal pain, unspecified; F17.200 Nicotine dependence, unspecified, uncomplicated; Z90.49 Acquired absence of other specified parts of digestive tract
CPT/HCPCS: 99285; 96372; 96361; 96374; 96375; 36415; 83690; 85025; 80053; 81001; 74177; J0500; J2270; J2405; J7030; S0028